=== PATIENT | female | born 1955 | race Hispanic/Latino ===

== ENCOUNTER 2017-03-28 12:24 | Day surgery (SDC) | payer BC ==
--- NOTE | 2017-03-28 14:05 | Anesthesia Day of Surgery ---
Anesthesia Day of Surgery - Day of Surgery Patient Examined: Yes Patient H&P Reviewed: Yes Patient is NPO: No (ate at 9AM)
--- NOTE | 2017-03-28 14:08 | Anesthesia Consultation ---
Anesthesia Consult and Med Hx Date of service: 03/28/17 - Airway Anesthetic Teeth Evaluation: Good ROM Head & Neck: Adequate Mental/Hyoid Distance: Adequate Mallampati Class: Class III Intubation Access Assessment: Possibly Difficult - Pulmonary Exam CTA: Yes - Cardiac Exam Cardiac Exam: RRR - Pre-Operative Health Status ASA Pre-Surgery Classification: ASA3 Proposed Anesthetic Plan: MAC - Pulmonary Hx Smoking: No Hx Asthma: No Hx Sleep Apnea: No (snore) - Cardiovascular System Hx Hypertension: Yes (use a diuretic) Hx Heart Attack/AMI: No - Central Nervous System Hx Neuromuscular Disorder: Yes (scoliosis) Hx Seizures: No CVA: No Hx Back Pain: Yes (degenerative lumbar disc, pain on rt leg to foot when supine) - Gastrointestinal Hx Gastroesophageal Reflux Disease: No - Endocrine Hx Renal Disease: No Hx Liver Disease: No Hx Non-Insulin Dependent Diabetes: Yes (A1C 5.9) - Other Systems Hx Alcohol Use: No Hx Obesity: Yes - Additional Comments Anesthesia Medical History Comments: NAC, except PONV
[2017-03-28] MEDS ORDERED: DIPRIVAN 10 MG/ML IV ONE ×5 (14:33→14:38)
[2017-03-28] MEDS ORDERED: DILAUDID ONE (14:33)
[2017-03-28] MEDS ORDERED: VERSED ONE (14:34)
[2017-03-28] MEDS ORDERED: NACL 0.9% 1000 ML 1,000 ML ONE (14:51)
[2017-03-28] MEDS ORDERED: NACL 0.9% 1000 ML 1,000 ML IV SCH (15:00)
--- NOTE | 2017-03-28 16:46 | Post Anesthesia Evaluation ---
- Post Anesthesia Evaluation Patient Participated: Yes Airway Patent: Yes Stable Respiratory Function: Yes Nausea/Vomiting: No Temp > 96.8F: Yes Pain Manageable: Yes Adequeate Hydration: Yes Anesthesia Complications: No Block Receding Appropriately: Not Applicable Patient on Ventilator: No
[2017-03-28 17:31] VITALS: BP 144/83
--- NOTE | 2017-03-29 10:53 | Magnetic Resonance Report ---
MRI scan of the lumbar spine: History: Decrease in range of motion. Weakness, pain. Technique: Multiplanar multisequence images were obtained without contrast injection. Findings: Conus medullaris terminates at L1 with normal signal intensity. Normal lumbar lordosis. Normal pre-and paravertebral soft tissue. Normal height and signal intensity of vertebral bodies. Decrease in signal intensity and height of L1-L2, L2-L3, L3-L4 and L4-L5. Degenerative changes. L1-L2. Degenerative disc. Degenerative facet joints. No neural foramina narrowing or central canal spinal stenosis. L2-L3. Severe bilateral neuroforaminal narrowing secondary to degenerative diffuse disc bulge. Degenerative facet joint being more pronounced on the left side. No central canal spinal stenosis. L3-L4. Severe bilateral neural foramina narrowing and moderate central canal spinal stenosis secondary to degenerative diffuse disc bulge and degenerative facet joints and ligamenta flava hypertrophy. L4-L5. Severe bilateral neuroforaminal narrowing secondary to degenerative diffuse disc bulge. Degenerative facet joints. Mild ligamenta flava hypertrophy. No central canal spinal stenosis. L5-S1. Moderate bilateral neural foramina narrowing secondary to degenerative diffuse disc bulge and degenerative facet joints. No central canal spinal stenosis. Impression: Multilevel bilateral neuroforaminal narrowing secondary to degenerative diffuse disc bulge and degenerative facet joints. Central canal spinal stenosis as detailed above. No extrusion or sequestration of disc.
== END 2017-03-28 17:28 | disposition home or self-care (01) ==
LOC: CATHLABREC 12:24 → MRI 12:24 → CATHLABREC 17:28
DX: M51.36 Other intervertebral disc degeneration, lumbar region (principal); I10 Essential (primary) hypertension; M41.9 Scoliosis, unspecified; E11.9 Type 2 diabetes mellitus without complications; E66.9 Obesity, unspecified; Z68.39 Body mass index [BMI] 39.0-39.9, adult; Z79.899 Other long term (current) drug therapy; Z79.84 Long term (current) use of oral hypoglycemic drugs
CPT/HCPCS: 72148; J1170; J2250; J2704; J7030